=== PATIENT | male | born 1965 | race Caucasian/White ===

== ENCOUNTER 2018-04-19 11:13 | Inpatient (IN) | payer MEDICAID ==
[~2018-04-19] VITALS: Ht 167.6 cm; Wt 74.0 kg
[2018-04-19 11:21] VITALS: Ht 167.6 cm; Wt 74.0 kg
[2018-04-19 12:23] LABS: BASOPHIL % 0.3 % (0-2); PLATELET COUNT 326 x10^3mcL (130-400)
[2018-04-19 12:32] LABS: CALCIUM 9.4 mg/dL (8.5-10.1); CARBON DIOXIDE 27.4 mmol/L (21-32); CREATININE SERUM 1.8 mg/dL (0.7-1.3); POTASSIUM SERUM 3.8 mmol/L (3.5-5.1)
[2018-04-19 12:37] LABS: ALBUMIN 3.5 g/dL (3.4-5.0); BILIRUBIN TOTAL 0.4 mg/dL (0.20-1.00); TOTAL PROTEIN, SERUM 7.4 g/dL (6.4-8.2)
[2018-04-19 14:34] LABS: microscopic required? YES; urine erythrocyte TRACE (NEGATIVE)
[2018-04-19] MEDS ORDERED: LIPI20 PO (14:58)
[2018-04-19] MEDS ORDERED: MES60 PO (14:59)
[2018-04-19] MEDS ORDERED: NOR10 PO (14:59)
[2018-04-19] MEDS ORDERED: HYDROXYZINE50 M1 PO (15:00)
[2018-04-19 15:01] LABS: PHOSPHOROUS 2.6 mg/dL (2.5-4.9)
[2018-04-19] MEDS ORDERED: PREDNISONE20 MG PO (15:01)
[2018-04-19] MEDS ORDERED: ESCITALOPRAM10 M1 PO (15:01)
[2018-04-19 15:07] LABS: CHOLESTEROL/HDL RATIO 1.7
[2018-04-19 15:53] VITALS: BP 138/86
[2018-04-19 18:50] LABS: AMPHETAMINE QUAL UR POSITIVE (See below)
[2018-04-19 20:42] VITALS: BP 119/80
[2018-04-20 06:17] VITALS: BP 130/78
[2018-04-20 07:32] LABS: PLATELET COUNT 311 x10^3mcL (130-400); RED CELL DISTRIBUTION WIDTH 14.4 % (11.5-14.5)
[2018-04-20 07:37] LABS: BASOPHIL % 0 % (0-2)
[2018-04-20 07:43] LABS: CALCIUM 8.5 mg/dL (8.5-10.1); CARBON DIOXIDE 27.9 mmol/L (21-32); CHLORIDE SERUM 101 mmol/L (98-107); CREATININE SERUM 1.3 mg/dL (0.7-1.3); GFR1 > 60 mL/min; GLUCOSE SERUM 190 mg/dL (74-106); MAGNESIUM 1.8 mg/dL (1.8-2.4); PHOSPHOROUS 2.7 mg/dL (2.5-4.9); POTASSIUM SERUM 4.1 mmol/L (3.5-5.1); SODIUM SERUM 136 mmol/L (136-145)
[2018-04-20 09:25] VITALS: BP 136/68
[2018-04-20 17:28] VITALS: BP 132/78
[2018-04-20 21:24] VITALS: BP 136/79
[2018-04-21 05:30] VITALS: BP 146/82
[2018-04-21 06:55] LABS: PLATELET COUNT 287 x10^3mcL (130-400)
[2018-04-21 07:06] LABS: RED CELL DISTRIBUTION WIDTH 15.4 % (11.5-14.5)
[2018-04-21 07:16] LABS: CALCIUM 8.7 mg/dL (8.5-10.1); CARBON DIOXIDE 29.2 mmol/L (21-32); CHLORIDE SERUM 105 mmol/L (98-107); CREATININE SERUM 1.2 mg/dL (0.7-1.3); GFR1 > 60 mL/min; GLUCOSE SERUM 139 mg/dL (74-106); MAGNESIUM 1.8 mg/dL (1.8-2.4); PHOSPHOROUS 3.1 mg/dL (2.5-4.9); SODIUM SERUM 140 mmol/L (136-145)
[2018-04-21 09:26] VITALS: BP 135/65
[2018-04-21 10:54] LABS: BAND NEUTROPHIL 2 % (0-10); BASOPHIL 0 % (0-2); MONOCYTE 1 % (0-7); SEGMENTED NEUTROPHILS 97 % (37-75)
[2018-04-21 10:55] LABS: PLATELET MORPHOLOGY PLATELETS DECREASED; rbc morphology (normal/abnorm) ABNORMAL (NORMAL)
[2018-04-21 15:50] VITALS: BP 135/65
[2018-04-21 17:50] VITALS: BP 148/77
[2018-04-21 20:56] VITALS: BP 143/85
[2018-04-22 06:10] VITALS: BP 145/88
[2018-04-22 07:46] LABS: CALCIUM 8.5 mg/dL (8.5-10.1); CARBON DIOXIDE 30.1 mmol/L (21-32); CHLORIDE SERUM 102 mmol/L (98-107); CREATININE SERUM 1.2 mg/dL (0.7-1.3); GFR1 > 60 mL/min; GLUCOSE SERUM 149 mg/dL (74-106); MAGNESIUM 1.9 mg/dL (1.8-2.4); PHOSPHOROUS 3.4 mg/dL (2.5-4.9); SODIUM SERUM 140 mmol/L (136-145)
[2018-04-22] MEDS ORDERED: PYRIDOSTIGMINE180 MG PO (08:05)
[2018-04-22] MEDS ORDERED: PREDNISONE20 MG PO (08:08)
[2018-04-22 08:36] LABS: BASOPHIL % 0.1 % (0-2); PLATELET COUNT 280 x10^3mcL (130-400); RED CELL DISTRIBUTION WIDTH 14.9 % (11.5-14.5)
[2018-04-22 09:20] VITALS: BP 117/81
[2018-04-22 17:46] VITALS: BP 140/82
[2018-04-22 21:32] VITALS: BP 142/90
[2018-04-23 05:35] VITALS: BP 146/96
[2018-04-23 06:17] LABS: BASOPHIL % 0.1 % (0-2); PLATELET COUNT 296 x10^3mcL (130-400); RED CELL DISTRIBUTION WIDTH 15.1 % (11.5-14.5)
[2018-04-23 06:35] LABS: CALCIUM 8.3 mg/dL (8.5-10.1); CARBON DIOXIDE 34.6 mmol/L (21-32); CHLORIDE SERUM 101 mmol/L (98-107); CREATININE SERUM 1.1 mg/dL (0.7-1.3); GFR1 > 60 mL/min; GLUCOSE SERUM 114 mg/dL (74-106); PHOSPHOROUS 3.5 mg/dL (2.5-4.9); POTASSIUM SERUM 4.2 mmol/L (3.5-5.1); SODIUM SERUM 140 mmol/L (136-145)
[2018-04-23 09:31] VITALS: BP 152/89
[2018-04-23 16:49] VITALS: BP 157/92
[2018-04-23 22:35] VITALS: BP 147/87
[2018-04-24 05:23] VITALS: BP 129/81
[2018-04-24 09:14] VITALS: BP 150/77
[2018-04-24 14:05] LABS: PLATELET COUNT 310 x10^3mcL (130-400); RED CELL DISTRIBUTION WIDTH 14.8 % (11.5-14.5)
[2018-04-24 14:07] VITALS: BP 121/79
[2018-04-24 14:16] LABS: CALCIUM 8.7 mg/dL (8.5-10.1); CARBON DIOXIDE 30.5 mmol/L (21-32); CHLORIDE SERUM 100 mmol/L (98-107); CREATININE SERUM 1.3 mg/dL (0.7-1.3); GFR1 > 60 mL/min; GLUCOSE SERUM 180 mg/dL (74-106); PHOSPHOROUS 3.2 mg/dL (2.5-4.9); SODIUM SERUM 138 mmol/L (136-145)
[2018-04-24 14:26] LABS: BAND NEUTROPHIL 0 % (0-10); BASOPHIL 0 % (0-2); SEGMENTED NEUTROPHILS 100 % (37-75)
[2018-04-24 14:28] LABS: PLATELET MORPHOLOGY PLATELETS NORMAL; rbc morphology (normal/abnorm) ABNORMAL (NORMAL)
[2018-04-24 15:09] VITALS: BP 121/79
[2018-04-24 16:47] VITALS: BP 141/80
[2018-04-24 20:52] VITALS: BP 146/105
[2018-04-25 05:34] VITALS: BP 147/89
[2018-04-25 07:23] LABS: CALCIUM 8.5 mg/dL (8.5-10.1); CARBON DIOXIDE 30.6 mmol/L (21-32); CHLORIDE SERUM 101 mmol/L (98-107); CREATININE SERUM 1.1 mg/dL (0.7-1.3); GFR1 > 60 mL/min; GLUCOSE SERUM 115 mg/dL (74-106); MAGNESIUM 2.2 mg/dL (1.8-2.4); PHOSPHOROUS 3.7 mg/dL (2.5-4.9); POTASSIUM SERUM 4.4 mmol/L (3.5-5.1); SODIUM SERUM 138 mmol/L (136-145)
[2018-04-25 07:46] LABS: PLATELET COUNT 302 x10^3mcL (130-400)
[2018-04-25 08:00] LABS: RED CELL DISTRIBUTION WIDTH 15.2 % (11.5-14.5)
[2018-04-25 08:24] VITALS: BP 142/75
[2018-04-25 12:30] LABS: T3 TOTAL 0.47 ng/mL
[2018-04-25 13:05] LABS: FREE T4 0.98 ng/dL (0.76-1.46); FREE THYROXINE INDEX 2.5 ug/dL (1.4-4.5); T4(THYROXINE) 6.6 ug/dL (4.7-13.3)
[2018-04-25 13:33] LABS: BAND NEUTROPHIL 2 % (0-10); BASOPHIL 0 % (0-2); MONOCYTE 7 % (0-7); SEGMENTED NEUTROPHILS 88 % (37-75)
[2018-04-25 13:34] LABS: PLATELET MORPHOLOGY PLATELETS NORMAL; rbc morphology (normal/abnorm) ABNORMAL (NORMAL)
[2018-04-25 15:47] VITALS: BP 142/90
[2018-04-25 22:11] VITALS: BP 139/73
[2018-04-26 05:23] VITALS: BP 113/92
[2018-04-26 06:17] LABS: PLATELET COUNT 322 x10^3mcL (130-400)
[2018-04-26 06:25] LABS: CALCIUM 8.1 mg/dL (8.5-10.1); CARBON DIOXIDE 32.8 mmol/L (21-32); CHLORIDE SERUM 102 mmol/L (98-107); CREATININE SERUM 1.1 mg/dL (0.7-1.3); GFR1 > 60 mL/min; GLUCOSE SERUM 120 mg/dL (74-106); MAGNESIUM 2.1 mg/dL (1.8-2.4); POTASSIUM SERUM 4.5 mmol/L (3.5-5.1); SODIUM SERUM 139 mmol/L (136-145)
[2018-04-26 06:37] LABS: BASOPHIL % 0 % (0-2); RED CELL DISTRIBUTION WIDTH 14.9 % (11.5-14.5)
[2018-04-26 09:13] VITALS: BP 131/90
[2018-04-26 17:17] VITALS: BP 130/75
[2018-04-26 20:54] VITALS: BP 111/57
[2018-04-27 05:43] VITALS: BP 110/70
[2018-04-27 06:59] LABS: PLATELET COUNT 323 x10^3mcL (130-400)
[2018-04-27 07:02] LABS: CALCIUM 8.2 mg/dL (8.5-10.1); CARBON DIOXIDE 29.9 mmol/L (21-32); CHLORIDE SERUM 98 mmol/L (98-107); CREATININE SERUM 1.2 mg/dL (0.7-1.3); GFR1 > 60 mL/min; GLUCOSE SERUM 124 mg/dL (74-106); MAGNESIUM 2.2 mg/dL (1.8-2.4); PHOSPHOROUS 4.4 mg/dL (2.5-4.9); POTASSIUM SERUM 4.6 mmol/L (3.5-5.1); SODIUM SERUM 136 mmol/L (136-145)
[2018-04-27 07:12] LABS: BASOPHIL % 0 % (0-2); RED CELL DISTRIBUTION WIDTH 14.7 % (11.5-14.5)
[2018-04-27 10:07] VITALS: BP 130/73
[2018-04-27 16:35] VITALS: BP 136/81
[2018-04-27 21:21] VITALS: BP 131/83
[2018-04-28 05:33] VITALS: BP 143/82
[2018-04-28 07:12] LABS: CALCIUM 8.1 mg/dL (8.5-10.1); CHLORIDE SERUM 99 mmol/L (98-107); CREATININE SERUM 1.1 mg/dL (0.7-1.3); GFR1 > 60 mL/min; GLUCOSE SERUM 146 mg/dL (74-106); MAGNESIUM 2.2 mg/dL (1.8-2.4); PHOSPHOROUS 4.2 mg/dL (2.5-4.9); SODIUM SERUM 136 mmol/L (136-145)
[2018-04-28 08:03] VITALS: BP 139/96
[2018-04-28 09:48] LABS: BASOPHIL % 0 % (0-2); PLATELET COUNT 292 x10^3mcL (130-400)
[2018-04-28 15:48] VITALS: BP 139/96
[2018-04-28 16:48] VITALS: BP 140/87
[2018-04-28 18:20] VITALS: BP 140/87
[2018-04-28 20:55] VITALS: BP 142/89
[2018-04-29 06:17] VITALS: BP 143/98
[2018-04-29 09:47] VITALS: BP 140/83
[2018-04-29 11:43] VITALS: BP 140/83
== END 2018-04-29 12:18 | disposition home or self-care (01) | DRG 42 ==
LOC: ED 11:13 → MU 14:15
PROVIDERS: Emergency Medicine; Internal Medicine; ADMIT Family Medicine
PROC: 0DB68ZX Excision of Stomach, Via Natural or Artificial Opening Endoscopic, Diagnostic (ICD-10-PCS; 2018-04-26)
PROC: 0DB58ZX Excision of Esophagus, Via Natural or Artificial Opening Endoscopic, Diagnostic (ICD-10-PCS; principal; 2018-04-26 11:00)
DX: G70.01 Myasthenia gravis with (acute) exacerbation (principal); N17.0 Acute kidney failure with tubular necrosis; R13.10 Dysphagia, unspecified; R06.03 Acute respiratory distress; J20.9 Acute bronchitis, unspecified; E86.0 Dehydration; A08.4 Viral intestinal infection, unspecified; K29.70 Gastritis, unspecified, without bleeding; K29.80 Duodenitis without bleeding; R73.03 Prediabetes; I10 Essential (primary) hypertension; R16.0 Hepatomegaly, not elsewhere classified; E78.5 Hyperlipidemia, unspecified; F15.10 Other stimulant abuse, uncomplicated; F12.10 Cannabis abuse, uncomplicated; F17.210 Nicotine dependence, cigarettes, uncomplicated; Z68.24 Body mass index [BMI] 24.0-24.9, adult; Z59.0 Homelessness; Z91.14 Patient's other noncompliance with medication regimen
CPT/HCPCS: 43235; 83880; 84439; 99406; J1200; J1610; J1940; J1956; J2060; J2250; J2310; J2920; J2930; J3010; J3490; J7030; J7512; J7613; J7620; J7644; Q0092; Q9967

== ENCOUNTER 2020-06-20 04:47 | Emergency (ER) | payer OTHER, SELFPAY ==
[~2020-06-20] VITALS: Ht 167.6 cm; Wt 90.7 kg
[~2020-06-20 04:47] MED LIST: ESCITALOPRAM10 M1 PO; HYDROXYZINE50 M1 PO; LIPI20 PO; MES60 PO; NOR10 PO; PREDNISONE20 MG PO; PYRIDOSTIGMINE180 MG PO
[2020-06-20 05:05] VITALS: Ht 167.6 cm; Wt 90.7 kg
[2020-06-20 06:35] LABS: BASOPHIL % 0.6 % (0.2-1.5); PLATELET COUNT 285 x10^3mcL (152-348)
[2020-06-20 06:41] LABS: RED CELL DISTRIBUTION WIDTH 18.6 % (12.1-16.2)
[2020-06-20 06:46] LABS: CALCIUM 8.5 mg/dL (8.5-10.1); CARBON DIOXIDE 29.7 mmol/L (21-32); CREATININE SERUM 1.6 mg/dL (0.7-1.3)
[2020-06-20 06:50] LABS: ALBUMIN 3.4 g/dL (3.4-5.0); BILIRUBIN TOTAL 0.5 mg/dL (0.20-1.00); TOTAL PROTEIN, SERUM 6.3 g/dL (6.4-8.2)
[2020-06-20] MEDS ORDERED: FLAGYL500 MG PO (08:01)
[2020-06-20] MEDS ORDERED: LEVOFLOXACIN750 M1 PO (08:01)
[2020-06-20 08:28] VITALS: BP 120/73
== END 2020-06-20 08:28 | disposition home or self-care (01) ==
LOC: ED 04:47
PROVIDERS: Emergency Medicine
DX: K57.92 Diverticulitis of intestine, part unspecified, without perforation or abscess without bleeding (principal); R79.89 Other specified abnormal findings of blood chemistry; I10 Essential (primary) hypertension; Z88.0 Allergy status to penicillin
CPT/HCPCS: J2270; J2405; J7030